=== PATIENT | male | born 2000 | race Caucasian/White ===

== ENCOUNTER 2023-12-09 17:04 | Emergency (ER) | payer OTHER ==
[~2023-12-09] VITALS: Ht 177.8 cm; Wt 76.8 kg
[2023-12-09] MEDS ORDERED: Ketorolac 30 MG/ML VIAL IM ONE (17:30)
[2023-12-09] MEDS ORDERED: Acetaminophen 325 MG TAB PO ONE (17:30)
[2023-12-09 18:59] VITALS: BP 107/67; PULSE 98; TEMP 98.1
== END 2023-12-09 19:11 | disposition home or self-care (01) ==
LOC: COL.ER 17:04
DX: S86.002A Unspecified injury of left Achilles tendon, initial encounter (principal); X50.1XXA Overexertion from prolonged static or awkward postures, initial encounter; Y93.67 Activity, basketball; Y92.310 Basketball court as the place of occurrence of the external cause
CPT/HCPCS: J1885